=== PATIENT | female | born 1985 | race Caucasian/White ===

== ENCOUNTER 2023-04-29 16:33 | Emergency (ER) | payer SELFPAY ==
[~2023-04-29] VITALS: Ht 165.1 cm; Wt 74.0 kg
[2023-04-29 16:41] VITALS: BP 124/66; PULSE 91; RESP 20; TEMP 98.5; O2SAT 97
[2023-04-29] MEDS ORDERED: ACETAMINOPHEN 650MG/20.3ML UDC PO NR (17:30)
[2023-04-29] MEDS ORDERED: ACETAMINOPHEN 650MG/20.3ML UDC PO ONE (17:30)
[2023-04-29] MEDS ORDERED: TOPUD MT (21:25)
[2023-04-29] MEDS ORDERED: IBUP-1523 MT (21:25)
[2023-04-29] MEDS ORDERED: P50 MT (21:25)
== END 2023-04-29 21:55 | disposition home or self-care (01) ==
LOC: ER 16:33
DX: M72.2 Plantar fascial fibromatosis (principal)
CPT/HCPCS: 73610; 81025; 99283

== ENCOUNTER 2023-09-15 20:22 | Emergency (ER) | payer MEDICAID ==
[~2023-09-15] VITALS: Ht 151.1 cm; Wt 74.5 kg
[~2023-09-15 20:22] MED LIST: IBUP-1523 MT; P50 MT; TOPUD MT
[2023-09-15 20:34] VITALS: TEMP 98.3; O2SAT 98
[2023-09-15] MEDS ORDERED: MAGNESIUM/ALUMINUM HYDROXIDE/SIMETHICONE 30ML UDC PO ONE (21:00)
[2023-09-15 21:08] LABS: CLARITY URINE CLEAR (CLEAR); COLOR URINE YELLOW (YELLOW); GLUCOSE URINE NEGATIVE (NEGATIVE); KETONES URINE NEGATIVE (NEGATIVE); LEUKOCYTE ESTERASE URINE NEGATIVE (NEGATIVE); NITRITE URINE NEGATIVE (NEGATIVE); OCCULT BLOOD URINE NEGATIVE (NEGATIVE); PROTEIN URINE NEGATIVE (NEGATIVE); SPECIFIC GRAVITY URINE 1.019 (1.005-1.030)
[2023-09-15 21:27] LABS: BASOPHILS % 0.9 % (0.0-2.0); EOSINOPHILS % 2.4 % (0.0-5.0); HEMATOCRIT. 41.7 % (36.0-48.0); HEMOGLOBIN. 13.9 g/dL (12.0-16.0); LYMPHOCYTES % 43.2 % (20.0-50.0); MEAN CORPUSCULAR HEMOGLOBIN 28.2 pg (28.0-32.0); MEAN CORPUSCULAR HGB CONC 33.2 g/dL (31.0-37.0); MEAN PLATELET VOLUME 8.7 fl (7.4-10.4); MONOCYTES % 5.2 % (2.0-8.0); NEUTROPHILS % 48.3 % (40.0-76.0); PLATELET 317 x1000/uL (130-400); RED BLOOD CELL COUNT 4.91 mill/uL (4.2-5.4); WHITE BLOOD COUNT 7.4 x1000/uL (4.5-11.0)
[2023-09-15 21:37] LABS: INR 0.9; PROTHROMBIN TIME 10.1 sec (9.6-11.0)
[2023-09-15 21:42] LABS: ALANINE AMINOTRANSFERASE 38 IU/L (10-49); ALBUMIN 4.1 g/dL (3.2-4.8); ASPARTATE AMINOTRANSFERASE 23 IU/L (<34); BILIRUBIN TOTAL 0.3 mg/dL (0.1-1.0); CALCIUM 8.9 mg/dL (8.7-10.4); CARBON DIOXIDE 26 mEq/L (21-32); CHLORIDE 107 mEq/L (98-107); CREATININE 0.9 mg/dL (0.6-1.0); GLUCOSE 144 mg/dL (70-105); POTASSIUM 4.4 mEq/L (3.5-5.1); PROTEIN TOTAL 6.9 g/dL (6.0-8.3); SODIUM 140 mEq/L (136-145); UREA NITROGEN BLOOD 12 mg/dL (9-23)
[2023-09-15 21:43] LABS: HCG SCREEN NEGATIVE; TROPONIN I HIGH SENSITIVITY < 4 ng/L (3.0-34)
[2023-09-15] MEDS ORDERED: KETOROLAC 60MG/2ML VIAL IM ONE (23:00)
[2023-09-15] MEDS ORDERED: FAMOTIDINE 20MG TABLET PO ONE (23:00)
[2023-09-15] MEDS ORDERED: ONDANSETRON 4MG ODT PO ONE (23:00)
[2023-09-16 01:45] VITALS: BP 113/74; PULSE 74; RESP 16
[2023-09-16] MEDS: FAMOTIDINE 20MG TABLET PO NR (01:45)
[2023-09-16] MEDS: ONDANSETRON 4MG ODT PO NR (01:45)
[2023-09-16] MEDS: KETOROLAC 60MG/2ML VIAL IM NR (01:45)
[2023-09-16] MEDS: MAGNESIUM/ALUMINUM HYDROXIDE/SIMETHICONE 30ML UDC PO NR (01:45)
[2023-09-16] MEDS ORDERED: NAPR220C61 MT (02:02)
== END 2023-09-16 02:53 | disposition home or self-care (01) ==
LOC: EDBD 20:22 → ER 20:22
DX: K80.50 Calculus of bile duct without cholangitis or cholecystitis without obstruction (principal)
CPT/HCPCS: 99285; 76705; 80053; 81003; 81025; 84703; 83690; 85025; 85610; 84484; 36415; 93005; 96372; Q0162; J1885